=== PATIENT | female | born 1930 | race Caucasian/White ===

== ENCOUNTER 2016-08-08 23:03 | Inpatient (IN) | payer MEDICARE, BC ==
[~2016-08-08] VITALS: Ht 167.6 cm; Wt 50.1 kg
--- NOTE | ~2016-08-08 | HP ---
PATIENT'S NAME: VESNA BENAVIDEZ [facility] AGE: 86 Y [address] ROOM: [place] [address] LOCATION: [facility] ADMIT DATE: 08/09/2016 History & Physical DISCHARGE DATE: FAMILY PHYSICIAN: PHYSICIAN, UNKNOWN ATTENDING PHYSICIAN: Preston Clemente DATE OF SERVICE: ORTHOPEDIC HISTORY AND PHYSICAL CHIEF COMPLAINT: Fracture, right hip. HISTORY OF PRESENT ILLNESS: This 86-year-old female lives at an assisted living facility in [place], [place]. She suffered an unwitnessed fall, but was able to get up, and her son took her to a physician the next day, and an x-ray demonstrated a three- part intertrochanteric fracture of the right hip. She has had progressive dementia and loss of memory over the past year. She has been in the assisted living since about January of last year, but her daughter has noted some decreasing function. There was no loss of consciousness, chest pain, shortness of breath, dizziness, or blackout. She also complains of pain in her right wrist. X-rays demonstrated a slightly impacted fracture of her right distal radius without shortening. PAST MEDICAL HISTORY: ALLERGIES: NONE. MEDICAL HISTORY: 1. Dementia. 2. Gastroesophageal reflux. 3. Hypertension. 4. Anxiety disorder. 5. Chronic kidney disease. 6. Depression. 7. History of left breast cancer status post lumpectomy and radiation. MEDICATIONS: 1. Aspirin 1 per day. 2. Calcium. 3. Donepezil. 4. Lasix. 5. Garlic. PATIENT'S NAME: VESNA BENAVIDEZ [facility] AGE: 86 Y [address] ROOM: [address] [address] LOCATION: [facility] ADMIT DATE: 08/09/2016 History & Physical DISCHARGE DATE: FAMILY PHYSICIAN: PHYSICIAN, UNKNOWN ATTENDING PHYSICIAN: Preston Clemente 6. Lisinopril. 7. Losartan. 8. Omeprazole. 9. MiraLAX. 10. Tylenol. 11. Loperamide. SOCIAL HISTORY: No smoking or alcohol use. No illicit drug use. Lives in assisted living. Ambulates with a walker. FAMILY HISTORY: Father of [place] at 70. Mother of old age. REVIEW OF SYSTEMS: No recent fevers or chills. No malaise. No weight loss or gain. No nausea or vomiting. No dysuria or hematuria. No chest pain or shortness of breath. No auditory or visual disturbances, but she has had frequent change in mental status over the past months, nothing acute, but steady decline in memory and function according to her daughter. No skin changes or rashes. PHYSICAL EXAMINATION: GENERAL: She cannot give a history. She says a few words, but cannot tell me details of what happened. VITAL SIGNS: Temperature 98.0, respirations 14, O2 sats 94%, blood pressure 169/94, and pulse 70 and regular. HEENT: Atraumatic and normocephalic. PERRL. EOMI. TMs clear. Throat clear. NECK: Supple. CHEST: Clear to auscultation. HEART: Regular rhythm. ABDOMEN: Soft and nontender. SPINE: Nontender. EXTREMITIES: Right wrist has mild tenderness. No warmth or redness. Minimal swelling. Her right hip is slightly externally rotated and tender. There is no warmth, redness, or bruising. She is able to dorsiflex and plantar flex her toes. She has intact pulses. No ankle edema. IMAGING STUDIES: X-rays are reviewed from [place], [place] and demonstrated a three-part intertrochanteric fracture of the right hip with mild displacement. In addition, there is a very slightly impacted fracture of right distal radius with very slight dorsal tilt, but no shortening. There is also an ulnar styloid fracture. PATIENT'S NAME: VESNA BENAVIDEZ [facility] AGE: 86 Y [address] ROOM: [address] [address] LOCATION: [facility] ADMIT DATE: 08/09/2016 History & Physical DISCHARGE DATE: FAMILY PHYSICIAN: PHYSICIAN, UNKNOWN ATTENDING PHYSICIAN: Preston Clemente IMPRESSION: 1. Three-part intertrochanteric fracture, right hip with some displacement. 2. Impacted fracture of the right distal radius with minimal shortening and ulnar styloid fracture. 3. Hypertension. 4. Progressive dementia. 5. Ground level fall. 6. Gastroesophageal reflux disease. 7. Depression. 8. Anxiety disorder. PLAN: Preoperative medical clearance followed by ORIF of the right hip. A short arm cast was applied to the right forearm, well-padded. I discussed details of the planned surgical procedure and treatment with her daughter. I discussed the risks, benefits, and alternatives emphasizing anesthetic, neurovascular, and infectious complications, explaining that she is at higher risk because of her age and multiple medical problems and dementia. She understands and desires for her mother to proceed with the surgery as planned. She will probably return to the [facility] in [place] per daughter's request next week. MD AUTUMN FELICIANO/suzanna /[id number] D: 355 T: HISTORY & PHYSICAL
--- NOTE | ~2016-08-08 | CON ---
PATIENT'S NAME: VESNA BENAVIDEZ [facility] AGE: 86 Y [address] ROOM: [place] [address] LOCATION: [facility] ADMIT DATE: 08/09/2016 Consultation DISCHARGE DATE: FAMILY PHYSICIAN: PHYSICIAN, UNKNOWN ATTENDING PHYSICIAN: Preston Clemente DATE OF CONSULTATION: 08/09/2016 CARDIOLOGY CONSULTATION REASON FOR CARDIOLOGY CONSULTATION: Preoperative cardiac evaluation for a fall with a right hip and right radius fracture as well as elevated troponin. HISTORY OF PRESENT ILLNESS: This is an 86-year-old female with advanced dementia that experienced two separate falls in her assisted living facility. She was evaluated at an outside health care facility, and x-ray confirmed a right intertrochanteric hip fracture as well as a right distal radius fracture. She was transferred to [facility] for higher level of care and treatment. She has plans to undergo a surgical repair of these injuries. Majority of her history was obtained from chart review due to her advanced dementia and unsure of health history. When questioned about her fall or recent health activity, she denies chest pain, shortness of breath, dizziness, presyncope, palpitations, nausea, vomiting, or diarrhea. When questioned, she answers a few questions and states that she does normally walk. She was unable to fully explain where she lives or exactly how she fell. She does note that she did have a mastectomy in her past medical history. PAST MEDICAL HISTORY: From chart review: 1. Hypertension. 2. Chronic kidney disease. 3. GERD. 4. Dementia. 5. History of breast cancer with a lumpectomy and radiation. 6. Anxiety disorder. FAMILY HISTORY: Unable to be obtained due to patient's mental status. SOCIAL HISTORY: Unable to be fully obtained. The patient is unable to say whether she smoked in the past or not. PATIENT'S NAME: VESNA BENAVIDEZ [facility] AGE: 86 Y [address] ROOM: [place] [address] LOCATION: [facility] ADMIT DATE: 08/09/2016 Consultation DISCHARGE DATE: FAMILY PHYSICIAN: , UNKNOWN ATTENDING PHYSICIAN: Preston Clemente CURRENT MEDICATIONS: 1. Cefazolin 2 g IV on-call to OR. 2. Aricept 5 mg p.o. daily in the evening. 3. Ativan 0.25 mg p.o. twice daily. 4. Lipitor 10 mg p.o. daily. 5. Norvasc 10 mg p.o. daily. 6. Pepcid 20 mg p.o. daily. 7. Protonix 40 mg p.o. daily. 8. Remeron 15 mg p.o. daily in the evening. MEDICATION ALLERGIES: No known medication allergies. REVIEW OF SYSTEMS: Review of systems attempted to be fully evaluated and most of them obtained from chart review due to patient's neurological status. Pertinent positives are listed in the HPI. All other review of systems are apparently negative from chart review, but once again, unable to fully confirm due to patient's neurological status. PHYSICAL EXAMINATION: VITAL SIGNS: Temperature 98.0, pulse 73, respirations 16, blood pressure 133/69, and O2 saturation 95% on room air. The patient weighs 49 kg. SKIN: [place], warm, and dry. EYES: Sclerae clear. No xanthelasmas. ENT: Oral mucosa is pink and moist. No jugular venous distention noted. Does have the presence of bilateral carotid bruits. CHEST: Respirations are even and unlabored. Lung sounds are clear to auscultation. HEART: Regular rate and rhythm. Normal S1 and S2. No murmurs, rubs, or gallops. ABDOMEN: Soft and nontender. MUSCULOSKELETAL: Equal muscle strength in upper and lower extremities bilaterally against resistance. EXTREMITIES: Peripheral pulses palpable. Her peripheral pulses are decreased specifically in her popliteal. No cyanosis or edema noted. PSYCHIATRIC: Disoriented to place and time. Her mood and affect are appropriate. IMPRESSION AND PLAN: Per Dr. Murphy: 1. Preoperative cardiovascular evaluation. 2. Status post fall with a right hip and right radius fracture. 3. Advanced dementia. 4. Chronic kidney disease, stage 4. PATIENT'S NAME: VESNA BENAVIDEZ [facility] AGE: 86 Y [address] ROOM: [id number] [place], [place] [address] LOCATION: [facility] ADMIT DATE: 08/09/2016 Consultation DISCHARGE DATE: FAMILY PHYSICIAN: PHYSICIAN, UNKNOWN ATTENDING PHYSICIAN: Preston Clemente 5. History of breast cancer with mastectomy. Overall, patient has evidence of atherosclerosis with mild carotid bruits noted and decreased peripheral leg pulses. Her echocardiogram shows a preserved ejection fraction of 60%. She has a grade 1 diastolic dysfunction noted. She also has limited wall-motion abnormalities. Her EKG shows no acute ST changes suggestive of acute coronary syndrome or need for further cardiovascular invasive interventions for evaluation. The patient is okay to proceed with surgery at an increased risk due to her age and the possibility of acute coronary syndrome with the elevated troponin. We do recommend close monitoring during the perioperative period to avoid hypotension and arrhythmias. We will check a TSH and a lipid panel as well as start her on aspirin 81 mg p.o. daily if okay with Orthopedics as well as Lipitor 10 mg p.o. daily. We will continue to monitor, evaluate, and treat as appropriate. Thank you for this consult. Thank you for allowing [facility] to interact in the care of this patient. JABARI NAVARRO APRN FOR MD YESENIA PERDUE/suzanna /[id number] d: 08/09/16 1246 t: 08/30/16 1754, CONSULTATION REPORT
--- NOTE | ~2016-08-08 | OR ---
PATIENT'S NAME: VESNA BENAVIDEZ [facility] AGE: 86 Y [address] ROOM: [address] [place], [place] [address] LOCATION: [facility] ADMIT DATE: 08/09/2016 OR/Procedure Report DISCHARGE DATE: FAMILY PHYSICIAN: Wilbur Mart MD ATTENDING PHYSICIAN: Preston Clemente SURGEON: Preston Clemente MD FAMILY AND DIVORCE LEGAL ASSISTANT: DATE OF PROCEDURE: 08/11/2016 PREOPERATIVE DIAGNOSIS: Intertrochanteric fracture, right hip. POSTOPERATIVE DIAGNOSIS: Intertrochanteric fracture, right hip. OPERATION: Long TFN. ANESTHESIA: General ET tube. INDICATIONS: This an 86-year-old female who fell in [place] three days ago, sustaining an intertrochanteric fracture of her right hip and a nondisplaced distal radius fracture. She was sent for treatment to [facility] and a long extensive workup and evaluation showed elevated troponin and so it was felt that she was having a heart ischemia. It was felt that although high risk for surgical intervention, the only way to give her pain relief would be to stabilize the fracture. The family requested that. The patient is demented, but has been functioning in a group home. DESCRIPTION OF PROCEDURE: The patient was brought to the operating room, and when satisfactory general anesthesia had been established, she was transferred to the fracture table. Her fracture was reduced with longitudinal traction and internal rotation and reduction confirmed with the C-arm. When it was satisfactory, her right hip and thigh were prepped and draped in an aseptic manner. A straight incision in line with the greater trochanter was made at the tip of the greater trochanter and carried down through the subcutaneous fat. The tip of the greater trochanter was palpated and fenestrated with a curved awl and long guidepin pushed down the canal. It was measured and 340 mm long x 11 mm diameter nail selected. The guide pin stopped proximal to the patella and on the lateral, it appeared that the femur had increased curve to it, so a nail was not able to be pushed down to the proximal pole of patella, but was probably 3 cm proximal to it. This was accepted. The proximal femur was overreamed with a 17-mm reamer and the 340 x 11 mm nail was pushed down the canal until resistance was felt and then it was impacted until the tunnel for the helical blade was opposite the lesser trochanter. The cannula was then placed and an incision made for the helical blade. The cannula was pushed down to the bone. A guide pin placed and there was a little cephalad at the center of the head, but it was center on the lateral view and this PATIENT'S NAME: VESNA BENAVIDEZ [facility] AGE: 86 Y [address] ROOM: [place] [address] LOCATION: [facility] ADMIT DATE: 08/09/2016 OR/Procedure Report DISCHARGE DATE: FAMILY PHYSICIAN: Wilbur Mart MD ATTENDING PHYSICIAN: Preston Clemente was accepted. The lateral cortex was overreamed and a 95 mm long lag screw selected. The lag screw was impacted home and the set screw tightened down and then backed off half a turn. The insertion device was removed and the cannula removed. Position of the implants was checked on AP and lateral views of the hip and at the knee and accepted. The insertion arm was removed. The wounds were irrigated with saline. The proximal fascia of the gluteus mireya was closed with #1 Vicryl stitch. Subcutaneous fat on both wounds was closed with a running 2-0 Vicryl, and the skin closed with skin lacie. Dressings were applied. The patient awakened having remained stable throughout the procedure. MD BETTY SMART/agl /[id number] d: 08/11/16 1702 t: 08/15/16 1151, OPERATIVE SUMMARY
--- NOTE | ~2016-08-08 | CON ---
PATIENT'S NAME: VESNA BENAVIDEZ [facility] AGE: 86 Y [address] ROOM: [address] [place], [place] [address] LOCATION: G3N ADMIT DATE: 08/09/2016 Consultation DISCHARGE DATE: FAMILY PHYSICIAN: PHYSICIAN, UNKNOWN ATTENDING PHYSICIAN: Preston Clemente CHIEF COMPLAINT: Right wrist and right hip pain, status post mechanical fall. REASON FOR CONSULTATION: Preoperative medical clearance for surgery for the right intertrochanteric hip fracture and right distal radial fracture, nondisplaced. HISTORY OF PRESENT ILLNESS: This is an 86-year-old female who has advanced dementia at baseline, living in an assisted living facility and the story is directly obtained from the patient's son over the phone given that the patient has advanced dementia and I could not get any history from the patient. At baseline, according to the son, the patient is easily forgetful from her dementia and also requires assistance of activities of daily living most of the time and sometime can carry on normal conversation, but sometimes she cannot. The story is that last night when she was trying to get out of bed to go to the bathroom, she tripped and fell on the ground. She did not pass out and there was no chest pain, palpitation, lightheadedness, seizure activity, or postictal confusion. The patient was able to crawl to a nearby chair and get up. Because she was able to get up and did not complain of any pain, the patient was not taken to the hospital for evaluation last night. Instead, this morning, the son took the patient to see a physician for evaluation. Over there, because the patient did not have any complaint, was able to walk without any problems, no imaging was performed this morning. She was sent back to the assisted living. However, 5 p.m. again she suffered another unwitnessed fall in her assisted living facility when she was walking and tripped on the carpet. At this time, she did complain of right wrist and also right hip pain and could not get up. Again, she denied any loss of consciousness, any dizziness, any syncope, seizure-like activity, palpitation, or chest pain prior to the fall. The patient was seen at the emergency room at [facility] and the patient had several imaging tests performed including x-ray and CT and showed right intertrochanteric hip fracture and right distal radial fracture, nondisplaced. However, CT of the head was not performed, chest x-ray was not performed, and EKG was also not performed. The patient was transferred here for higher level of care due to the fractures requiring surgical repair. I had a long conversation with the son over the phone regarding her past medical history and more about her medical condition. According to her son, the patient never complained of any chest pain or dyspnea at rest or on exertion and never had a cardiac surgery or any myocardial infarction in the PATIENT'S NAME: VESNA BENAVIDEZ [facility] AGE: 86 Y [address] ROOM: [address] [address] LOCATION: [facility] ADMIT DATE: 08/09/2016 Consultation DISCHARGE DATE: FAMILY PHYSICIAN: PHYSICIAN, UNKNOWN ATTENDING PHYSICIAN: Preston Clemente past and was never told to have a heart failure either. She was also never a smoker, never a drinker, never used illegal drugs, and never had a diagnosis of COPD or asthma either. She does have chronic kidney disease, unclear what stage given that I do not have any baseline to compare, but her primary care physician has been telling the patient that her kidney function has been getting worse and at one point, they also discussed about dialysis, but it was never pursued given that her kidney function was never reached to the stage that will require emergent dialysis. The patient still makes a good amount of urine according to the patient's son. She requires assistance with most of her activities of daily living. It is because of her dementia, but she is usually active individual at baseline. Her METS score is around 4. Again, this is obtained from the patient's son because the patient has dementia and I cannot get any history from the patient. REVIEW OF SYSTEMS: As mentioned in the history of present illness. All other systems reviewed negative except as mentioned in the history of present illness. PAST MEDICAL HISTORY: 1. Dementia. 2. Gastroesophageal reflux disease. 3. Hypertension. 4. Anxiety disorder. 5. CKD, unknown what stage given that I do not have any baseline to compare. 6. Depression. 7. Remote history of left breast cancer, status post lumpectomy and radiation, already in remission. ALLERGIES: NO KNOWN DRUG ALLERGIES. HOME MEDICATIONS: 1. Aspirin 81 mg p.o. daily. 2. Calcium and vitamin D 600 mg/400 international units 1 tablet p.o. b.i.d. 3. Donepezil 5 mg 1 tablet p.o. at bedtime. 4. Lasix 20 mg 1 tablet p.o. every Saturday and . 5. Garlic oil capsule 500 mg 1 capsule p.o. daily. 6. Lisinopril 10 mg p.o. daily. 7. Lorazepam 0.5 mg, take a half of that, which is 0.25 mg b.i.d. 8. Mirtazapine 15 mg one tablet p.o. daily. 9. Omeprazole 20 mg p.o. daily. 10. MiraLAX 1 packet every third day. 11. Tylenol 650 mg p.o. every 4 hours p.r.n. for pain or fever. 12. Loperamide 4 mg p.o. after the first loose stool and then 1 tablet for each additional loose stool. PATIENT'S NAME: VESNA BENAVIDEZ [facility] AGE: 86 Y [address] ROOM: [place] [address] LOCATION: [facility] ADMIT DATE: 08/09/2016 Consultation DISCHARGE DATE: FAMILY PHYSICIAN: PHYSICIAN, UNKNOWN ATTENDING PHYSICIAN: Preston Clemente 13. Ativan 0.25 mg p.o. daily p.r.n. for anxiety. 14. Milk of magnesia suspension 30 mL p.o. daily p.r.n. for constipation. 15. Artificial tears 1 drop each eye b.i.d. p.r.n. for dry eyes. SOCIAL HISTORY: The patient uses a walker to ambulate and denies any alcohol, illegal drugs, or cigarette smoking in the past or in the present. FAMILY HISTORY: Father from myocardial infarction at age 70 and mother from advanced age that the patient could not remember. PAST SURGICAL HISTORY: 1. Status post cholecystectomy. 2. Status post lower back surgery. 3. Status post left breast cancer and lumpectomy. PHYSICAL EXAMINATION: VITAL SIGNS: At the time of my dictation, blood pressure 169/103, heart rate 70, temperature 98, respirations 14, saturation 94% on room air. Pain cannot be assessed given the patient's dementia and does not answer my question. GENERAL APPEARANCE: Alert, and cannot assess orientation given the patient has dementia and is not answering my question, not in acute distress. HEENT: Pupils are equally round and reactive to light. Extraocular muscles are intact. Normocephalic. Atraumatic. Anicteric sclerae. Nasal turbinates are normal bilaterally. Dry oral mucosa. No oral thrush. NECK: No JVD. No cervical lymphadenopathy. No cervical stiffness. CARDIOVASCULAR: Regular rate and rhythm. No murmur, no rubs, no gallops. Normal S1, normal S2. Regular rate and rhythm. No murmur, no rubs, no gallops. RESPIRATORY: Clear to auscultation. ABDOMEN: Soft, nontender, nondistended, normal bowel sounds. No hepatosplenomegaly, no abdominal rigidity, and no rebound tenderness. EXTREMITIES: No edema in upper or lower extremity. Dorsalis pedis pulses and the posterior tibialis pulses are +2 bilaterally symmetrical on palpation and also on Doppler. Femoral pulse is also palpable bilaterally. Radial pulse is also palpable bilaterally. Sensation is intact. NEUROLOGIC: Cannot assess the range of motion in the right upper and right lower extremity due to fracture. Otherwise, unremarkable. Cannot perform a full neurological examination given the patient has dementia and does not follow every command. No slurred speech. No facial droop. SKIN: No ulcer, no rash, no cyanosis. MUSCULOSKELETAL: Range of motion not assessed due to the fracture in right upper and right lower extremity. Left upper and left lower extremity range of motion is intact. PATIENT'S NAME: VESNA BENAVIDEZ [facility] AGE: 86 Y [address] ROOM: [address] [address] LOCATION: [facility] ADMIT DATE: 08/09/2016 Consultation DISCHARGE DATE: FAMILY PHYSICIAN: PHYSICIAN, UNKNOWN ATTENDING PHYSICIAN: Preston Clemente LABORATORY DATA: CPK 459. Troponin 0.143. ProBNP 10,396. White blood cells 8.8, hemoglobin 8.7, hematocrit 25.9, MCV 94.5, platelets 265. Glucose 170, BUN 44, creatinine 1.9. Sodium 141, potassium 4.4, chloride 108, CO2 21, calcium 8.4, magnesium 1.9. Anion gap 16.4, GFR 25, INR 1.0, PTT 26. Urinalysis not yet collected. CK-MB 4.2, pre-albumin 28. IMAGES: Chest x-ray was taken as part of the preoperative medical clearance protocol. Official reading is pending. Based on my review, no obvious infiltrate and no obvious effusion. EKG on admission, as part of the preoperative clearance on August 09, 2016, at 1:59 a.m. shows sinus rhythm, heart rate of 83 beats per minutes with a QRS of 85 milliseconds, QTc 445 milliseconds. No axis deviation. Some nonspecific ST-T wave changes in the inferolateral leads. No finding to suggest acute ischemia. The patient does have a large amplitude of the QRS complex in the anterolateral leads, but there is no secondary repolarization change in the lateral leads, which could be typically seen in the left ventricular hypertrophy. Either way, no acute ischemic changes and no ST depression. 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 ASSESSMENT AND PLAN: 1. Regarding her right intertrochanteric hip fracture and the right distal radial fracture, nondisplaced: Will be managed by Orthopedic Surgery. Pain control per Orthopedic Surgery. Deep vein thrombosis prophylaxis per Orthopedic Surgery. 2. Regarding her preoperative medical clearance: At this point, she is not medically cleared yet until a transthoracic echo, which will be performed today to look for any motion abnormality, any valvulopathy, and her ejection fraction. If the echo comes back normal, then she will be cleared for surgery. The reason for the echo is because she does have troponin elevation on the first set 0.143. CPK elevated first set at 459. CK-MB elevated at 4.2, the first set. ProBNP is also high at 10,396. I do not have any baseline to compare these numbers, but she also does have a history of a chronic kidney disease. Again, I do not have any number to compare the baseline. I am not sure what her baseline creatinine and baseline GFR are, but in the setting of a chronic kidney PATIENT'S NAME: VESNA BENAVIDEZ [facility] AGE: 86 Y [address] ROOM: [address] [place], [place] [address] LOCATION: G3 ADMIT DATE: 08/09/2016 Consultation DISCHARGE DATE: FAMILY PHYSICIAN: PHYSICIAN, UNKNOWN ATTENDING PHYSICIAN: Preston Clemente disease, the patient can definitely have a high troponin and also high proBNP. The patient does not have any known history of cardiac history, but she does have a known history of chronic kidney disease. Therefore, in the setting of nonischemic EKG and absence of chest pain, the troponin elevation and proBNP elevation most likely are secondary to her chronic kidney disease. However, the patient is demented and cannot give much history. Therefore, I will get an echo in the morning, the reason to look for any cardiac motion abnormality, an ejection fraction, and any valvulopathy to make sure the troponin elevation are not coming from the heart, but from the kidney. I will also get the medical records from her primary care physician's office to compare her prior kidney function and also prior troponin number to see her baseline. The patient's son did tell me that when she was hospitalized in April last year in [facility] in [place], [place], the patient was also told she had a high elevation of troponin, but no further workup was performed at that time. For now, I am not going to consult Cardiology unless echo comes back abnormal. She does not look in heart failure. She also never had any history of heart failure either and she does not look volume overloaded. In fact, she looks dry and dehydrated. The proBNP elevation is likely from the chronic kidney disease. 3. For her chronic kidney disease or acute on chronic kidney disease: She looks dry, I am going to hydrate her with normal saline at a slow rate. She is an 86-year-old female. I do not want to give her too fast to not volume overload her. I will give her normal saline at 60 mL/h and then check another basic metabolic panel to measure kidney function is improving later today. I will cycle troponin, CPK, CK- MB for 2 more sets for a total of about 3 sets. With hydration, I will expect the kidney function to improve by looking at the improvement in the GFR and improvement in the creatinine. She is making good urine. UA is pending. Followup plan depends on the clinical course. Orthopedic Surgery is considered intermediate risk surgery. If the troponin elevation and the proBNP are coming from the chronic kidney disease, and echo comes back normal, then she does not have any active cardiac contraindication for the surgery. 4. Regarding her dementia: Continue the home medication, Aricept. 5. Regarding her CKD: Unclear what stage. I will get the medical records from the PCP office to compare the baseline. As mentioned before, hydration gently with normal saline and check another kidney function later today to make sure it is improving. 6. Troponin elevation and proBNP elevation: As mentioned before, they are probably from the chronic kidney disease but need to rule out cardiac origin. See #1. PATIENT'S NAME: VESNA BENAVIDEZ [facility] AGE: 86 Y [address] ROOM: [place] [address] LOCATION: [facility] ADMIT DATE: 08/09/2016 Consultation DISCHARGE DATE: FAMILY PHYSICIAN: PHYSICIAN, UNKNOWN ATTENDING PHYSICIAN: Preston Clemente 7. Regarding her hypertension: I will hold the lisinopril in the setting of possible JOSE A on CKD (do not know what her baseline creatinine and GFR is). I will hold the Lasix given that she is getting hydration for IV fluids. I will put her on IV hydralazine p.r.n. and IV labetalol p.r.n. If needed, she can get p.o. amlodipine for blood pressure control since the amlodipine would not affect her kidney function. 8. Regarding her gastroesophageal reflux disease: Continue her home omeprazole 20 mg p.o. daily. 9. Regarding her anxiety disorder: Continue her home Ativan low dose. 10. Regarding her depression: Continue her home Remeron. 11. Deep vein thrombosis prophylaxis: Per Orthopedic Surgery. 12. CODE STATUS: She is DO NOT RESUSCITATE/DO NOT INTUBATE. I have already spoken to the patient's son on the phone and confirmed with him that the patient is a DO NOT RESUSCITATE/DO NOT INTUBATE and the advance directive form is also in the chart. Time spent on the day of consultation 40 minutes including chart review, interviewing and examining the patient, addressing all questions and concerns the patient and patient's son (over the phone) had. I also obtained the history from patient's son and went over plan of care with nurses, patient, and her son (over the phone). The son's phone number is [phone]. MD LYDIA MERCHANT/suzanna /[id number] d: 08/09/16 0550 t: 08/29/16 1106, CONSULTATION REPORT
--- NOTE | ~2016-08-08 | ECHO ---
Transthoracic Echocardiography Report (TTE) Demographics Patient Name VESNA BENAVIDEZ Date of Study 08/09/2016 J Patient Number [id number] Visit Number [id number] Date of 1930 Room Number G3305 Gender Female Number Age 86 year(s) Referring Chyna Mont[place] Geochemical Laboratory Technician Dario Jeffries RVT, Physician MD DOMINGUEZ Denisse Oh Physician Interpreting Katherine Wise Multimedia Authoring Specialist Physician A Supervising Ordering Denisse Arambula MD, MD/MLP Physician Nurse Stress Bacteriologist Soil Conclusions Contractility Score Summary Normal Left Ventricular contractility was noted. Summary Technically difficult exam. The estimated left ventricular ejection fraction is 60%. The left ventricle is normal in size . Mild concentric left ventricular hypertrophy. Diastolic assessment reveals Grade I diastolic dysfunction. Inferobasal hypokinesis. The aortic valve is severely sclerotic. Mild aortic stenosis. Procedure Type of Study TTE procedure:2D Echocardiogram, M-Mode, Doppler , Color Doppler. Procedure Date Date: 08/09/2016 Start: 06:48 AM Study Location: Inpatient Portable Technical Quality: Fair due to body habitus. Indications:Elevated Troponin and Preop cardiac evaluation. Appropriate Use Criteria: 9 Patient Status: Routine HR: 73 bpm BP: 133/69 mmHg M-Mode/2D Measurements LV Diastolic Dimension: 2.74 cm LV Systolic Dimension: 2.06 cm LV Septum Diastolic: 1.33 cm LV PW Diastolic: 1.11 cm AO Root Dimension: 2.4 cm Cardiac Output: 2.14 l/min LA Dimension: 3.5 cm LVOT: 1.5 cm LVOT VTI: 16.6 cm RV Base: 3.72 cm LV Stroke volume: 29.32 ml RV Length: 5.56 cm TAPSE: 2.22 cm TDI-S': 13.7 cm/s Doppler Measurements AV Peak Velocity: 2.19 m/s MV Peak E-Wave: 0.72 m/s AV Peak Gradient: 19.18 mmHg MV Peak A-Wave: 1.11 m/s AV Mean Gradient: 11 mmHg MV E/A Ratio: 0.65 LVOT Peak Velocity: 0.92 m/s MV Deceleration Time: 254 msec TR Velocity:2.55 m/s PV Peak Velocity: 1.26 m/s TR Gradient:26.01 mmHg PV Peak Gradient: 6.35 mmHg Estimated RAP:3 mmHg Estimated PASP: 29.01 mmHg Estimated RVSP: 29 mmHg A' Septal Velocity: 0.08 m/s E' Septal Velocity: 0.05 m/s A' Lateral Velocity: 0.17 m/s E' Lateral Velocity: 0.05 m/s Findings Left Ventricle The left ventricle is normal in size . Mild concentric left ventricular hypertrophy. Diastolic assessment reveals Grade I diastolic dysfunction. Inferobasal hypokinesis. Right Ventricle Normal right ventricle structure and function. Left Atrium Normal left atrial size. Right Atrium The right atrium is mildly dilated. IVC measures 1.77 cm with inspiratory collapse. Mitral Valve Mild mitral annular calcification. Trivial mitral regurgitation by color Doppler. Aortic Valve The aortic valve is severely sclerotic. Mild aortic stenosis. Tricuspid Valve Normal appearing tricuspid valve. Trivial tricuspid regurgitation by color Doppler. Pulmonic Valve The pulmonic valve is not well visualized. Pericardial Effusion No evidence of pericardial effusion. Miscellaneous Visualized portions of the aortic root and ascending aorta appear normal in size. Pleural Effusion No evidence of pleural effusion. Contractility Score LV regional wall motion:(0-Non visualized 1-Normal 2-Hypokinesis 3-Akinesis 4-Dyskinesis 5-Aneurysm) Signature dtt: Jason Murphy dtd: 08/09/16 0648 Physician Self Edit
--- NOTE | ~2016-08-08 | DS ---
PATIENT'S NAME: VESNA BENAVIDEZ [facility] AGE: 86 Y [address] ROOM: [address] [place], [place] [address] LOCATION: G3N ADMIT DATE: 08/09/2016 Discharge Summary DISCHARGE DATE: 08/17/2016 FAMILY PHYSICIAN: Wilbur Mart MD ATTENDING PHYSICIAN: Preston Clemente ADMITTING DIAGNOSIS: Three-part intertrochanteric fracture of the right hip. COMORBIDITIES: Dementia, GERD, hypertension, chronic kidney disease, depression, and history of left breast cancer. HOSPITAL COURSE: The patient lives in assisted facility in [place], [place], had an unwitnessed fall, was unable to bear weight, was transferred for definitive care once her hip fracture was diagnosed. She was admitted to the hospital. Preoperative risk evaluation was done by hospitalist. She had a transthoracic echo ordered. She had elevated troponin at the time of admission. 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 She had preserved EF on echocardiogram with some limited wall-motion asymmetry. Surgery was deferred due to the patient's increased risk of cardiac complications. Echocardiogram did show preserved EF with some diastolic dysfunction. The patient's code status was discussed and she was made DNR. The patient had elevated troponins consistent with OK and continued discussions were had with the family regarding their options for treatment. It was elected to proceed with surgery. She did have a long TFN placed. Postoperatively, the patient was alert and in minimal discomfort, hemoglobin is 7, she was typed and crossed and transfused 1 unit of packed red blood cells. She was continued to be monitored for her [id number] OK. She was on aspirin, Isordil, Lipitor, and Lopressor. Posttransfusion, hemoglobin was 8.7. Postop day 2, the patient was transferred to the floor. She continued with her usual state of confusion and chronic dementia. She did develop some hypernatremia with a serum sodium of 147. Postop day 4, serum sodium had come down to 142, she continued on her aspirin, Imdur, Lipitor, and Lopressor, and the patient was discharged to [facility]. DISCHARGE MEDICATIONS: 1. Tylenol as needed for pain. 2. Aspirin 325 p.o. daily for 30 days and then resume baby aspirin. 3. Atorvastatin 80 mg p.o. daily. 4. Pepcid 20 p.o. daily. 5. Isosorbide mononitrate 30 p.o. daily. 6. Ativan 0.25 p.o. b.i.d. 7. Metoprolol 25 p.o. t.i.d. 8. Aricept 5 mg p.o. q.h.s. 9. Mirtazapine 15 mg p.o. q.h.s. PATIENT'S NAME: VESNA BENAVIDEZ [facility] AGE: 86 Y [address] ROOM: [address] [address] LOCATION: [facility] ADMIT DATE: 08/09/2016 Discharge Summary DISCHARGE DATE: 08/17/2016 FAMILY PHYSICIAN: Wilbur Mart MD ATTENDING PHYSICIAN: Preston Clemente FOLLOWUP APPOINTMENT: Followup appointment with pt escort in [place]. AP pelvis and lateral right hip x-ray in 2 weeks. Ambulate as tolerated. Remove lacie 08/22/2016. Daily dressing changes, gauze, 4x4, and tape. NORTH FULLER FOR MD SÁNCHEZ SMART/suzanna /[id number] d: 08/23/16 0356 t: 08/29/16 1124, DISCHARGE SUMMARY
[2016-08-09 02:50] LABS: HEMATOCRIT 25.9 % (30.0-46.0); HEMOGLOBIN 8.7 g/dL (10.0-15.0); MCH 31.8 pg (27.0-34.0); MCHC 33.6 gm/dL (32.0-36.5); MCV 94.5 fl (83.0-98.0); MPV 9.7 fl (9.4-12.4); RBC 2.74 M/uL (3.00-5.00); RDW-CV 12.8 % (11.9-14.6); WBC 8.8 K/uL (4.0-11.0)
[2016-08-09] MEDS ORDERED: CALCIUM 600 +1 EA13 PO (02:53)
[2016-08-09] MEDS ORDERED: ASPIRIN (CHILDR81 MG PO (02:53)
[2016-08-09] MEDS ORDERED: ARICEPT 5 MG5 MG PO (02:54)
[2016-08-09] MEDS ORDERED: GARLIC500 MG PO (02:55)
[2016-08-09] MEDS ORDERED: LASIX20 MG PO (02:55)
[2016-08-09] MEDS ORDERED: PRINIVIL OR ZES10 MG PO (02:56)
[2016-08-09] MEDS ORDERED: REMERON15 MG PO (02:57)
[2016-08-09] MEDS ORDERED: ATIVAN 0.5MG0.5 MG PO ×2 (02:57→03:01)
[2016-08-09] MEDS ORDERED: PRILOSEC20 MG PO (02:57)
[2016-08-09] MEDS ORDERED: TYLENOL325 MG PO (02:59)
[2016-08-09] MEDS ORDERED: MIRALAX17 GM PO (02:59)
[2016-08-09 03:01] LABS: PROTIME 10.8 SECONDS (9.6-11.1)
[2016-08-09] MEDS ORDERED: IMODIUM2 MG PO (03:01)
[2016-08-09] MEDS ORDERED: MILK OF MA400 MG/5 M PO (03:02)
[2016-08-09 03:25] LABS: ANION GAP 16.4 (10.0-19.0); CALCIUM 8.4 mg/dL (8.5-10.5); CREATININE 1.9 mg/dL (0.5-1.1); MAGNESIUM 1.9 mg/dL (1.3-2.6); POTASSIUM 4.4 mMol/L (3.7-5.1)
[2016-08-09] MEDS ORDERED: MINTOX SUSPENS355 ML PO (03:29)
[2016-08-09] MEDS ORDERED: REFRESH PLUS1 EACH OPHTH (03:30)
[2016-08-09 04:52] LABS: BILIRUBIN URINE NEGATIVE (NEGATIVE); BLOOD URINE 50 /UL (NEGATIVE); COLOR URINE YELLOW (YELLOW); GLUCOSE URINE NEGATIVE (NEGATIVE); KETONE URINE NEGATIVE (NEGATIVE); LEUKOCYTES URINE 100 /UL (NEGATIVE); NITRITE URINE NEGATIVE (NEGATIVE); PROTEIN URINE 500 mg/dL (NEGATIVE); SPEC GRAVITY URINE 1.025 (1.003-1.035); TURBIDITY URINE CLEAR (CLEAR); UROBILINOGEN URINE NORMAL (NORMAL)
[2016-08-09 05:10] LABS: BACTERIA URINE FEW (NEGATIVE); EPITHELIAL URINE 0-2 #/HPF (NEGATIVE); RBC URINE 20-50 #/HPF (NEGATIVE); WBC URINE 20-50 #/HPF (NEGATIVE)
[2016-08-09 05:11] LABS: GRANULAR CASTS URINE 0-2 #/LPF (NEGATIVE); HYALINE CAST URINE 0-2 #/LPF (NEGATIVE)
--- NOTE | 2016-08-09 05:45 | NUR ---
PATIENT ARRIVED BY EMT @0145, RUE WITH CASTED SPLINT, RLE W/INTERNAL ROTATION BUT GOOD PULSES AND CAN WIGGLE TOES ON COMMAND. ORIENTED TO SELF ONLY AND CAN BE VERY COMBATIVE. LEFT HAND PIV RUNNING NS@60ML/HR, BP HIGH AT TIMES AND WAS GIVEN PRN IVP WITH GOOD RESPONSE, PATIENTS DAUGHTER WILL BE HERE TODAY AND WILL BE ABLE TO HELP FILL OUT PART 1 OF THE ASSESSMENT FOR HX.
[2016-08-09 14:21] LABS: ANION GAP 15.7 (10.0-19.0); CALCIUM 8.4 mg/dL (8.5-10.5); CREATININE 2.1 mg/dL (0.5-1.1); POTASSIUM 4.7 mMol/L (3.7-5.1)
--- NOTE | 2016-08-09 14:30 | NUR ---
Introduced self/role to patients daughter Mara (#[phone]) in person. KULDIP Goodman It Architect also present. Their goal would be to see if the local SNF in [place] would have an opening. Then if they do not, consider [facility] as she lives in [facility]. Looking at placement Saturday or Saturday. Will start referral process tomorrow if patient gets out of surgery in time. SNF will probably not look at paperwork or make a decision until Saturday. Explained how Medicare worked in SNF and that patient will have to make progress inorder for Medicare to continue to cover the rehab stay. Talked transportation, ambulance vs family. Did explain there was no guarantee Medicare would pay for the ambulance but if medically needed we would fill out a form stating that. Surgery planned for tomorrow. Will touchbase with Mara Saturday. Added my name to her marker board. [facility] called, unsure if they would have an opening or not but to send referral when paperwork ready to view.
--- NOTE | 2016-08-09 17:22 | NUR ---
Significant Event: Remains on bedrest this shift. Repositions with two assist. Martin patent. Percocet 1 tab last at 1140. Needs assist with meals. Takes pills one at a time with sips of water. NPO after midnight for surgery tomorrow, permits signed. Follow up:
--- NOTE | 2016-08-10 04:30 | NUR ---
PATIENT NPO SINCE MIDNIGHT FOR SURGERY @1300 TODAY FOR RIGHT HIP REPAIR, RUE IN CAST AND BOTH WITH GOOD CSMS, PATIENT ORIENTED TO SELF ONLY AND MOVES AROUND IN THE BED SO UNABLE TO POSITION FOR COMFORT, REDD IN PLACE, LFA PIV RUNNING NS@60ML/HR, VS WNL, PAIN MEDS PERCOCET LD@1900 AND MORPHINE IVP LD@2130 WITH GOOD RESULTS AND PATIENT SLEPT WELL OVERNIGHT.
[2016-08-10 05:57] LABS: BASOPHIL % 0.5 %; EOSINOPHIL # 0.1 K/uL (0.0-0.5); EOSINOPHIL % 0.8 %; HEMATOCRIT 24.9 % (30.0-46.0); HEMOGLOBIN 8.2 g/dL (10.0-15.0); IMMATURE GRANULOCYTE % 0.3 %; LYMPHOCYTE # 1.5 K/uL (0.8-4.0); LYMPHOCYTE % 17.8 %; MCH 32.2 pg (27.0-34.0); MCHC 32.9 gm/dL (32.0-36.5); MCV 97.6 fl (83.0-98.0); MONOCYTE % 11.5 %; MPV 10.2 fl (9.4-12.4); NEUTROPHIL % 69.1 %; NRBC % 0 /100WBC (0-0.00); PLATELET COUNT 218 K/uL (150-450); RBC 2.55 M/uL (3.00-5.00); RDW-CV 13.2 % (11.9-14.6); WBC 8.7 K/uL (4.0-11.0)
[2016-08-10 06:04] LABS: ALBUMIN 3.1 gm/dL (3.5-5.0); ANION GAP 12.4 (10.0-19.0); CALCIUM 8.4 mg/dL (8.5-10.5); CREATININE 1.9 mg/dL (0.5-1.1); MAGNESIUM 2.2 mg/dL (1.3-2.6); POTASSIUM 4.4 mMol/L (3.7-5.1)
--- NOTE | 2016-08-10 06:42 | NUR ---
[phone] Supervised [facility] [employer]per [employer]rentice.
--- NOTE | 2016-08-10 11:30 | NUR ---
Mara Hill pt's daughter wanted to talk. They would like to have [facility] be their first choice. Then [facility] then [facility]. 1140 Spoke to Preston at [facility], they can only potentially accept if WBAT, not TTWB. In surgery no so will send out referrals Saturday.
--- NOTE | 2016-08-10 12:46 | NUR ---
pt taken down to pre-op at 1200. daughter at pt's side.
--- NOTE | 2016-08-10 16:35 | NUR ---
PT ALERT BUT CONFUSED. PT FELL AT HER ASSISTED LIVING AND FRACTURED HER HIP AND RT RADIAL FRACTURE. RT ARM IS CASTED. WAS GOING DOWN TO OR TODAY WHEN TROPONIN WAS DONE AND IS ELEVATED TO 5 THIS AFTERNOON. SURGERY CANCELED FOR TODAY AND DR Herndon WANTS PT ON PCU
--- NOTE | 2016-08-10 16:38 | NUR ---
PT ALERT BUT CONFUSED. PT FELL AT HER ASSISTED LIVING AND FRACTURES HER RT HIP AND RT RADIAL FRACTURE. RT ARM IS CASTED. PT'S TROPONIN IS 5 THIS AFTERNOON SO SURGERY IS CANCELED AND DR JOHNSONS PT ON PCU FOR MONITIRING.
--- NOTE | 2016-08-10 17:39 | NUR ---
PT TERANSFERED TO PCU AND REPORT GIVEN TO NURSE SCHULTZ.
--- NOTE | 2016-08-10 18:00 | NUR ---
PATIENT WAS TRANSFERED TO PCU AT 1715 PATIENT IS ALERT, DENIES PAIN OR CHEST PAIN. PEDAL PULSES ARE PALPABLE, LUNGS ARE CLEAR, HEART TONES DISTINCT. DR. MOREIRA CALLED TO INFORM PATIENT HAD BEEN TRANSFERED TO PCU.
--- NOTE | 2016-08-11 05:44 | NUR ---
Significant Event: DID C/O PAIN AT START OF SHIFT. PERCOCET GIVEN WITH GOOD RELIEF. PT WAS IN A BETTER MOOD AND MORE COOPERTIVE AFTER THE PERCOCET. SHE WAS ORIGINALLY SLIGHTLY COMBATIVE, AGITATED AND WANTED TO BE LEFT ALONE. SHE REFUSED TO TAKE HER PILLS. AFTER A FEW HRS, SHE WAS WILLING TO TAKE HER PILLS. SHE HAS MADE NO ATTEMPTS AT GETTING OUT OF BED. SHE APPEARS COMFORTABLE UNLESS REPOSITIONED. SHE IS ALERT BUT CONFUSED. RESTING WELL AT TIMES. Follow up:
[2016-08-11 10:28] LABS: BASOPHIL # 0.1 K/uL (0.0-0.2); BASOPHIL % 0.5 %; EOSINOPHIL # 0.1 K/uL (0.0-0.5); EOSINOPHIL % 0.7 %; HEMATOCRIT 25.7 % (30.0-46.0); HEMOGLOBIN 8.3 g/dL (10.0-15.0); IMMATURE GRANULOCYTE % 0.3 %; LYMPHOCYTE % 9.5 %; MCH 31.9 pg (27.0-34.0); MCHC 32.3 gm/dL (32.0-36.5); MCV 98.8 fl (83.0-98.0); MONOCYTE # 0.9 K/uL (0.0-1.0); MONOCYTE % 7.8 %; MPV 10.3 fl (9.4-12.4); NEUTROPHIL # (ANC) 8.9 K/uL (1.8-7.8); NEUTROPHIL % 81.2 %; NRBC % 0 /100WBC (0-0.00); PLATELET COUNT 241 K/uL (150-450); RDW-CV 13.3 % (11.9-14.6)
[2016-08-11 10:43] LABS: ALBUMIN 3.1 gm/dL (3.5-5.0); ANION GAP 14.2 (10.0-19.0); CALCIUM 8.4 mg/dL (8.5-10.5); CREATININE 1.8 mg/dL (0.5-1.1); PHOSPHORUS 2.6 mg/dL (2.5-4.9); POTASSIUM 4.2 mMol/L (3.7-5.1)
--- NOTE | 2016-08-11 16:55 | NUR ---
Significant Event: PT DOWN TO O.R. AT 1400 THIS AFTERNOON. FAMILY HERE AND DISCUSSED OPTIONS WITH DR. PT WAS PLEASENT AND COOPERATIVE AT TIME OF LEAVING FLOOR Follow up: RECOVER WHEN BACK TO FLOOR
--- NOTE | 2016-08-11 18:28 | NUR ---
Significant Event: PT RETURNS FROM O.R. PER BED AT TIME OF RETURN TO FLOOR PT IS AWAKE, NOT REALLY COHERANT, DOESN'T ANSWER QUESTIONS JUST LOOKS AT YOU. VSS. INCISION TO RT HIP COVERED WITH DRESSING AND IS CDI. PULSES STRONG SHE HAS NO PERIPHERAL EDEMA. DAUGHTER AT BEDSIDE BUT WILL GO HOME SOON PT IS STILL VERY SLEEPY. WILL BE BACK IN THE AM. NO CHANGES IN ASSESSMENTS FROM EARLIER THIS SHIFT. LR AT 125 MLS\HR TO LT AC, STARTED BY PACU. REPORT TO SETH Lazo RN Follow up: ROUTINE RECOVERY
[2016-08-12 04:15] LABS: HEMATOCRIT 22.7 % (30.0-46.0)
--- NOTE | 2016-08-12 04:27 | NUR ---
Significant Event: RESTING WELL FOR MOST OF NIGHT. ONLY SHOWS SIGNS OF PAIN WHEN MOVED. HAS REFUSED PAIN PILLS MULTIPLE TIMES. DID START TO GET WORKED UP WHEN ANOTHER PATIENT WAS YELLING OUT AND WAKING HER UP. R) HIP DRESSING REMAINS INTACT WITH NO DRAINAGE. NEURO CHECKS REMAIN INTACT TO THAT LEG. LOPRESSOR INCREASED TO 18.75MG TID PER DR. MOREIRA. SHE REMAINS CONFUSED. REMAINS ON 2L O2 ALL NIGHT. REDD REMAINS PATENT. SHE DOES C/O THAT SHE NEEDS TO URINATE FREQUENTLY. Follow up:
[2016-08-12 12:34] LABS: CALCIUM 7.9 mg/dL (8.5-10.5); POTASSIUM 4.4 mMol/L (3.7-5.1)
[2016-08-12 12:35] LABS: ANION GAP 14.4 (10.0-19.0)
--- NOTE | 2016-08-12 19:11 | NUR ---
Significant Event: Alert, oriented to person only. Becomes confused and restless when family leaves. Wants to go out looking for them. Denies pain and refuses offers of pain medication this shift. SBP to 190s, extra lopressor given per Dr Herndon and pressures return to normal. Temp 100.4 at first assessment, then 99.0 & 98.3. 1 unit blood given. Martin patent, draining yellow urine. Dressing to R) hip C/D/I. Up to chair with toe-touch and 2PA and did well. Pleasant and cooperative. Follow up: Per plan of care. Hemetest stools.
[2016-08-13 04:26] LABS: HEMATOCRIT 26.6 % (30.0-46.0); HEMOGLOBIN 8.7 g/dL (10.0-15.0)
[2016-08-13 04:43] LABS: CALCIUM 8.1 mg/dL (8.5-10.5); CREATININE 2.1 mg/dL (0.5-1.1); POTASSIUM 4.6 mMol/L (3.7-5.1)
[2016-08-13 04:44] LABS: ANION GAP 13.6 (10.0-19.0)
--- NOTE | 2016-08-13 05:29 | NUR ---
Significant Event: PERCOCET 1 TAB X2 FOR PAIN. NEVER REQUESTS THE PAIN PILL BUT WHEN SHE MOVES SHE GRIMACES AND FIGHTS THE TURN. SLEEPING WELL FOR MOST OF THE NIGHT. SHE WAS WOKE UP FOR A SHORT TIME AT 0400 FOR BLOOD DRAW A VITALS. SHE WAS AGITATED AND WAS HITTING. SHE JUST WANTED TO LEFT ALONE. SHORTLY AFTER SHE WAS DONE BEING BOTHERED, SHE FELL ASLEEP. NEURO CHECKS TO R) HIP AND LEG WNL. Follow up:
--- NOTE | 2016-08-13 12:42 | NUR ---
Call from Marylu letting me know that [facility] phoned her to let her know that they had a potential opening and that they would like an update faxed to them. I went ahead and gathered information off the chart and from the computer to fax a referral. I called and talked with Charlie at [facility], let her know that I was faxing an update to them and she could call me when it had been reviewed to let me know if/when they might be able to accept. I also phoned over to [facility], no one was around for me to talk with about the referral as they were busy so the credit front office developer asked that I phone back later to try to connect with someone. I went ahead and called over to [facility], talked with Preston, she states they also have open female beds on the SWB unit and would like a referral faxed to them as well. I let her know that per post op orders, [facility] was WBAT, as I had read in previous CM note, they needed her to be a certain weight bearing status in order for them to accept. Preston states she will review the information and see what the team thinks and get back with me on when they could possibly accept. I did call and leave a VM with Roxane's daughter with the above update and let her know she could call me back with any further questions she might have. Will continue to follow and assist.
--- NOTE | 2016-08-13 13:13 | NUR ---
A - NUT F/U. R) HIP FX, R) WRIST FX. BMI 17.4. A/O TO SELF - DEMENTIA. 1+ EDEMA. LABS: NA 149, GLU 119, BUN/CR 45/2.1, ALB 3.1, HGB/HCT 8.7/26.6 MEDS: IVF, REMERON, ROCEPHIN, PEPCID, PROTONIX, BOWEL/NAUSEA DIET: CARDIAC. INTAKE: BITES-25% (MOSTLY BITES). ENSURE TID NEEDS: 9516-2321 KCAL, 49-64 G PRO D - INADEQUATE NUTRIENT INTAKE R/T DECREASED APPETITE AEB INTAKE RECORD. I - GOAL FOR INCREASED ORAL INTAKE. WILL ADD MAGIC CUP @ L&D. PT WOULD BENEFIT FROM ENTERAL NUTRITION. REC CONSULT IF RECS DESIRED. M/E - WILL MONITOR POC, INTAKE F/U IN 2-4 DAYS.
--- NOTE | 2016-08-13 14:10 | NUR ---
Meet with patients son and daughter. Information has been [facility] to [facility]. First choice is now [facility]. 1510 Called [facility] to make sure they got paperwork, yes but have not looked at it yet. If they accept will be looking at Saturday. 1520 updated daughter Mara. 1600 Nu from [facility] called and can accept. Will plan for a [phone] dismissal here via ambulance on Saturday. 1610 Updated son David. Placed a note on the chart for Dr. Felix and placed Ambulance Cert form the chart. Charge Nurse Roberta made aware. Packet started and orders on the chart.
--- NOTE | 2016-08-13 15:43 | NUR ---
d-dr arora pt transfer off floor i-nurse gave report to 3n nurse pt hx, alertness, dementia but was at [facility] in [place], r)hip sx and r)wrist in cast, che uop, miralax today, iv, 02 1liter, ativan hx, percocet at 1020, hgb 8.7 today after 1 unit yest. gfr 22, trops. elevated dr dayanna rios, lopressor parameters, was combative, hematesx3 needs, dr weaver notified pt needs wrist cast cut back to eat, pt alert but forgetful and is pleasant, PT had her in recliner r-pt son and family here with her p-transferred by bed
--- NOTE | 2016-08-13 18:56 | NUR ---
Significant Event: Alert, oriented to person only, hx of dementia. Pleasant & cooperative. Martin. IV fluids to run at 50ml/hr until 2214. CSM intact, dressing CDI. Dangled at bedside, 2 assist. Bed alarm on. Follow up: L) elbow dressing change daily. Transfer to [place] Saturday?
--- NOTE | 2016-08-14 00:17 | NUR ---
AT 2100 LEILANI READ LPN ASKED FOR ASSISTANCE GIVING PATIENT MEDS. PATIENT HITTING, KICKING, AND BITING. ATTEMPTED TO GIVE MEDS WHOLE - PATIENT SPAT OUT. ATTEMPTED TO CRUSH MEDS AND PATIENT SPIT OUT. PATIENT REMOVED COCK UP WRIST SPLINT TO RIGHT ARM - REPLACED X 3. PATIENT REMOVED MULTIPLE TIMES. PATIENT PULLED OUT IV AT 2215. PATIENT UNCOOPERTIVE WITH ATTEMPTS TO GET V/S OR ATTEMPT IV RESTART. WILL RE-EVALUATE WHEN PATIENT CALMS DOWN.
--- NOTE | 2016-08-14 03:41 | NUR ---
Significant Event: EARLIER IN SHIFT, PATIENT CALM AND COOPERATIVE. SON HERE VISITING. TAKEN BITES OF EVENING MEAL, ASSISTED. TAKEN FLUIDS OFFERED. AT 2100 BECAME VERY AGITATED, RESTLESS, PULLING AT TUBES, KICKING, HITTING, REFUSED ADL'S. REFUSED EVENING MEDS. SPIT MEDS OUT IN APPLESAUCE. HAD MORPHINE IV FOR AGITATION BY CHARGE NURSE. LATER PULLED IV OUT, REMOVED DRSGS FROM LEFT ELBOW. 3 SIDERAILS UP. BED EXIT ALARM ON. LATER WAS QUIETER, LESS AGITATION. HAD CATHETER CARE DONE. LEFT ELBOW DRSGS REAPPLIED BY CHARGE NURSE. BILATERAL CALF PNEUMATICS. HAD 02 1L N/C ON AT BEGTNING OF SHIFT, SATS 93%, at MIDNOC SAT 90% without 02. PATIENT WOULD NOT LEAVE IT ON. Follow up:
[2016-08-14 05:37] LABS: HEMATOCRIT 28.2 % (30.0-46.0); HEMOGLOBIN 8.9 g/dL (10.0-15.0)
[2016-08-14 05:55] LABS: CALCIUM 8.2 mg/dL (8.5-10.5); CREATININE 1.8 mg/dL (0.5-1.1); MAGNESIUM 2.3 mg/dL (1.3-2.6); POTASSIUM 4.3 mMol/L (3.7-5.1)
[2016-08-14 05:58] LABS: ANION GAP 14.3 (10.0-19.0)
--- NOTE | 2016-08-14 12:20 | NUR ---
Spoke to Jules, she requested some updates which I faxed at 1235 (med list). 1330 called EMS to set up transfer for tomorrow at 0900-1000ish. 1545 Called up to talk to patients daughter Mara, patient had a sitter in the room. Daughter stated mom has never had these behaviors before. Some of meds where changed that she had been on for a long time, working to get those set up again. Will cancel transfer for tomorrow. Called and spoke to the LYDIA [facility] [place] that patient has been restless, which is out of her norm and we need to explore this a little further and work on some med changes. Will keep them updated. Hope for a transfer later this week. Called and updated Katie Rojas, spoke to charge nurse Luisa, canceled EMS transport.
--- NOTE | 2016-08-14 14:56 | NUR ---
IV restarted in right upper arm with 20 ga intracath without difficulty. patient christina well. it was secured with tegaderm and tape. placed in upper arm to be able to try to "hide" from patient as she has been pulling the IV's out with confusion. patient did try to get out of bed by herself and upon reminding her she needed help, she did swing at my face with her right arm, barely grazing my chin. reminded patient she has broken her hip and unable to get up by herself, asked her to stay in bed until more help could be obtained. patient's daughter then returned to room and was able to remind patient she had just been up and needed to rest at this time. patient seems to settle down at this time. call light in reach. daughter denies other needs at this time.
--- NOTE | 2016-08-14 18:46 | NUR ---
Significant Event: CONFUSED,CAN GET ANXIOUOS,ALMOST COMBATIVE AT TIMES. STARATED AO ATIVAN...HAD PERCOCET 1 TAB AT 1530. CSM GOOD IN ALL EXTREM, HAS SKIN TEARS TO LEFT ARM,ARM REDRESSED WITH VAS GAUZE AND SOFTBAND, CAN TAKE PILLS WITH WATER 1-2 AT A TIME.. IS NOW ON 1:1 NUSRING OF 1500 DUE TO INCREASED CONFUSION AND GETTING OOB...IVANIA REGALADO'Guzman AT 1530 WITH 800 ML OUT, HAD MIRALAX AND DUL SUPP. Follow up:
--- NOTE | 2016-08-15 04:23 | NUR ---
Patient alert, very confused, can be combative with cares, spits out medications, removes dressing and brace, taking blood pressure on the lower left leg and pulse ox done on toes, dressing clean dry and intact to the right hip, wears brace on right arm for fracture, has dressing to the left arm for skin tears, has new order for routine tylenol for pain control, narcotics are to be avoided, given ativan this shift finally rested after 2 doses, is hypertensive but spit out the po medications for hypertension, did have large bm on the commode this shift which also helped her mood, she has had one large incontinent void after che was removed yesterday afternoon.
[2016-08-15 05:46] LABS: ALBUMIN 2.5 gm/dL (3.5-5.0); ANION GAP 13.5 (10.0-19.0); CALCIUM 8.1 mg/dL (8.5-10.5); CREATININE 1.8 mg/dL (0.5-1.1); MAGNESIUM 2.4 mg/dL (1.3-2.6); PHOSPHORUS 2.6 mg/dL (2.5-4.9); POTASSIUM 4.5 mMol/L (3.7-5.1)
--- NOTE | 2016-08-15 10:39 | NUR ---
D: Rt wrist splint removed and skin cleansed. Skin intact without redness. Ecchymosis noted. RT wrist splint reapplied
--- NOTE | 2016-08-15 12:39 | NUR ---
A - NUT F/U. CONFUSED/AGGITATED AT TIMES. 1+ EDEMA. DECREASED APPETITE. LABS: NA 147, GLU 108, BUN/CR 40/1.8, ALB 2.5, HGB/HCT 8.9/28.2 MEDS: ARICEPT, SEROQUEL, IVF, REMERON, PEPCID, PROTONIX DIET: CARDIAC. INTAKE: BITES-10% ENSURE TID, MAGIC CUP @ L&D NEEDS: 9371-8591 KCAL, 49-64 G PRO D - INADEQUATE NUTRIENT INTAKE R/T DECREASED APPETITE AEB INTAKE RECORD. UNABLE TO MEET NEEDS ORALLY. I - GOAL FOR INCREASED NUTRIENT INTAKE. PT WOULD BENEFIT FROM DOBHOFF AND JEVITY 1.5 @ 45 ML/HR W/ 200 ML WATER Q6 HRS TO PROVIDE 1620 KCAL, 69 G PRO, 821 ML FREE WATER (+FLUSH) M/E - WILL MONITOR POC, INTAKE F/U IN 2-4 DAYS.
--- NOTE | 2016-08-15 12:43 | NUR ---
PT NOT ABLE TO MEET NEEDS ORALLY. WOULD BENEFIT FROM DOBHOFF AND JEVITY 1.5 @ 45 ML/HR W/ 200 ML WATER Q6 HRS.
--- NOTE | 2016-08-15 13:00 | NUR ---
Charge nurse Luisa called to report if patient has a good night to send you to [facility] per the doctor. 1325 Spoke to patients daughter. She will stay until this evening then head home. She will call up here in the morning to see how her mom has done. She reports her mom was much better today and back to baseline, slept a lot but was probably just catching up.
--- NOTE | 2016-08-15 17:35 | NUR ---
Significant Event:Patient has slept most of day. Awake now. Alert, disoriented to place and time. Cooperative. Dressing dry and intact to lt elbow and rt hip. Splint to rt wrist. O2 at 1L per nasal cannula. Up to chair/commode with 2 max assist. Follow up:
--- NOTE | 2016-08-16 05:41 | NUR ---
Significant Event: Has slept approx 2 hours this shift. Disoriented to time and place, reoriented frequently. Vital signs stable. Sats at 88% on RA while resting, placed on 1L 02. Pt fearful and anxious throughout much of shift, pt does calm after talking to daughter Mara. PRN ativan given with little relief. Seroquel given with effectiveness, pt was finally able to rest after 0345. Incontinent of urine. Up to bedside commode with max 2 assist. Dressing to R) hip is CDI, changed X1, was pulled off by patient. Skin tear to R) elbow, dressing chagned X2 this shift. Splint to R) wrist. Follow up: Possible transfer to [facility] today.
[2016-08-16 06:18] LABS: ALBUMIN 2.4 gm/dL (3.5-5.0); CALCIUM 8.1 mg/dL (8.5-10.5); CREATININE 1.8 mg/dL (0.5-1.1); PHOSPHORUS 2.2 mg/dL (2.5-4.9)
--- NOTE | 2016-08-16 07:50 | NUR ---
Read thru patients charting for last night and spoke to nursing in person - charge Cleo and patients nurse Samantha. Stated her night was not good. I am hesitant to send today. 0830 updated Katie Rojas, asked me to call Dr Felix. He preferred she went but was okay with letting her stay until tomorrow. We discussed her behaviors and dementia in length. Asked me to call Dr. Call. Dr Call agreed she should stay another night. Called EMS to postpone tomorrow. Left a message for daughter Mara, called and spoke to son David. Updated 3N staff. 1000 Mara called and we discuss her moms behaviors some. This could be her new normal or she still needs time to adjust to medications since was taken off them for a while. If [facility] would not accept we would look into dementia care closer to her in [place]. [facility] would be her last choice. 1015 noted to nurse Samantha that the dietitian had made some recommendations that we still needed to address, from yesterday. 1130 Nu from [facility] called for an update. Let her know patient was still restless last night, looking into some dietary questions but to plan for tomorrow at 0900 to leave here. Will send some updates. 1336 Faxed updates #[phone].
--- NOTE | 2016-08-16 16:05 | NUR ---
Significant Event: Cooperative this shift. Transfers with max two assist, walker and gaitbelt. Voids per bedside commode. Ate 75% of breakfast, and 50% of lunch, needs assistance with set up. Dressing to R) hip C/D?I. Dressing to R) elbow changed. Slint to R) wrist C/D/I. Tyenol 1000mg last at 1345. Disoriented to time/place, reoirented frequently. Bed/TABs alarms for safety. IV accidently removed with transfer, order received to not start another. On room air while awake, 1L while sleeping. Follow up:
--- NOTE | 2016-08-17 03:47 | NUR ---
Shift Summary: Patient is a heavy 2 assist to ambulate. Had a very large incontinent BM at beginning of the shift. Has been cooperative with cares and slept most of the shift. Did refuse to take a few of her pills. Patient needs her meals set up. She is to transfer to [place] via ambulance at 0900. She does not have any IV access.
--- NOTE | 2016-08-17 08:20 | NUR ---
Spoke to charge nurse Luisa, patient slept all night. Called EMS so they can work on transport between [phone]. She will call the doctor. 854 Spoke to Nu at [facility]. Ready for her to come. Requested [facility] be faxed with orders. 904 Called patients daughter Mara, timym with discharging today. 919 faxed orders, meds, [facility] #[phone]. given to nurse Grimm for her call.
--- NOTE | 2016-08-17 09:09 | NUR ---
D: Patient disoriented to place and time. Dressing dry and intact x2 to rt hip. Splint to rt wrist. Healing skin tear to lt elbow. Incontinent of BM last pm. Miralax and colace held this am. Patient sleepy this am and am dose of ativan held. This am BP 210/96 and BP meds given. Recheck at 0845 BP 185/82. Routine Tylenol ES given at 0840. Pneumovax given this am. CSM WNL.
== END 2016-08-17 09:55 | disposition swing bed (61) | DRG 480 ==
LOC: G3N 23:03 → GPCU 08-09 01:47 → G3N 08-09 01:47 → GPCU 08-10 17:17 → G3N 08-13 15:19
PROVIDERS: Hospitalist; Internal Medicine; Internal Medicine Interventional Cardiology; Nurse Practitioner Family; Physician Assistant; ADMIT Orthopaedic Surgery
PROC: 0QS604Z Reposition Right Upper Femur with Internal Fixation Device, Open Approach (ICD-10-PCS; principal; 2016-08-11)
PROC: 30233N1 Transfusion of Nonautologous Red Blood Cells into Peripheral Vein, Percutaneous Approach (ICD-10-PCS; 2016-08-12)
DX: S72.141A Displaced intertrochanteric fracture of right femur, initial encounter for closed fracture (principal); I21.4 Non-ST elevation (NSTEMI) myocardial infarction; J96.01 Acute respiratory failure with hypoxia; G93.40 Encephalopathy, unspecified; I50.33 Acute on chronic diastolic (congestive) heart failure; N18.4 Chronic kidney disease, stage 4 (severe); N17.9 Acute kidney failure, unspecified; D62 Acute posthemorrhagic anemia; S52.511A Displaced fracture of right radial styloid process, initial encounter for closed fracture; S52.611A Displaced fracture of right ulna styloid process, initial encounter for closed fracture; S52.501A Unspecified fracture of the lower end of right radius, initial encounter for closed fracture; Z68.1 Body mass index [BMI] 19.9 or less, adult; E87.0 Hyperosmolality and hypernatremia; N39.0 Urinary tract infection, site not specified; E44.0 Moderate protein-calorie malnutrition; F03.90 Unspecified dementia, unspecified severity, without behavioral disturbance, psychotic disturbance, mood disturbance, and anxiety; K21.9 Gastro-esophageal reflux disease without esophagitis; F32.9 Major depressive disorder, single episode, unspecified; F41.9 Anxiety disorder, unspecified; W18.09XA Striking against other object with subsequent fall, initial encounter; Z85.3 Personal history of malignant neoplasm of breast; Z92.3 Personal history of irradiation; I12.9 Hypertensive chronic kidney disease with stage 1 through stage 4 chronic kidney disease, or unspecified chronic kidney disease; Z66 Do not resuscitate; Z23 Encounter for immunization; K59.00 Constipation, unspecified
CPT/HCPCS: C1713; G0009; J0360; J0690; J0696; J1644; J2270; J2405; J3010; J7030; J7040; J7050; J7060; J7120; P9016